=== PATIENT | female | born 1945 | race Two or more races ===

== ENCOUNTER 2017-11-11 12:00 | Outpatient (CLI) | payer OTHER | END 2017-11-11 17:00 | disposition home or self-care (01) | LOC: SONOGRAMA 12:00 | DX: N18.3 Chronic kidney disease, stage 3 (moderate) (principal) ==

== ENCOUNTER 2017-12-24 12:13 | Outpatient (CLI) | payer OTHER | END 2017-12-24 15:59 | disposition home or self-care (01) | LOC: RAD 12:13 | DX: M51.36 Other intervertebral disc degeneration, lumbar region (principal) ==

== ENCOUNTER 2018-11-27 12:50 | Outpatient (CLI) | payer OTHER | END 2018-11-27 15:28 | disposition home or self-care (01) | LOC: SONOGRAMA 12:50 | DX: R10.2 Pelvic and perineal pain (principal); R10.9 Unspecified abdominal pain ==

== ENCOUNTER → 2018-11-27 | Emergency (ER) | payer OTHER ==
[~2018-11-27] VITALS: Ht 165.1 cm; Wt 89.8 kg
== END | disposition left against medical advice (07) ==
LOC: ER 10:47
DX: Z53.20 Procedure and treatment not carried out because of patient's decision for unspecified reasons (principal)

== ENCOUNTER 2018-12-31 10:03 | Outpatient (CLI) | payer OTHER | END 2018-12-31 11:00 | disposition home or self-care (01) | LOC: NUCLEAR 10:03 | DX: C50.111 Malignant neoplasm of central portion of right female breast (principal) | CPT/HCPCS: 78815; A9552 ==

== ENCOUNTER → 2019-01-05 | Outpatient (CLI) | payer OTHER | END | disposition home or self-care (01) | LOC: NUCLEAR 13:00 | DX: C50.111 Malignant neoplasm of central portion of right female breast (principal) | CPT/HCPCS: 78472; 78496; A9500 ==

== ENCOUNTER 2019-02-03 10:01 | Outpatient (CLI) | payer OTHER | END 2019-02-03 10:03 | disposition home or self-care (01) | LOC: SONOGRAMA 10:01 | DX: E04.1 Nontoxic single thyroid nodule (principal) ==

== ENCOUNTER 2019-02-12 14:00 | Outpatient (CLI) | payer OTHER | END 2019-02-12 14:12 | disposition home or self-care (01) | LOC: RAD 14:00 | DX: M25.511 Pain in right shoulder (principal) ==

== ENCOUNTER → 2019-03-11 | Outpatient (CLI) | payer OTHER | END | disposition home or self-care (01) | LOC: RAD 14:45 | DX: Z01.818 Encounter for other preprocedural examination (principal) ==

== ENCOUNTER 2021-10-30 10:10 | Outpatient (CLI) | payer OTHER | END 2021-10-30 10:11 | disposition home or self-care (01) | LOC: NUCLEAR 10:10 | PROVIDERS: ATTEND General Practice | DX: M85.89 Other specified disorders of bone density and structure, multiple sites (principal); I73.9 Peripheral vascular disease, unspecified ==

== ENCOUNTER 2021-11-01 10:16 | Outpatient (CLI) | payer OTHER | END 2021-11-01 10:17 | disposition home or self-care (01) | LOC: NUCLEAR 10:16 | PROVIDERS: ATTEND General Practice | DX: I73.9 Peripheral vascular disease, unspecified (principal) ==

== ENCOUNTER 2021-11-06 10:15 | Outpatient (CLI) | payer OTHER | END 2021-11-06 10:21 | disposition home or self-care (01) | LOC: RAD 10:15 | PROVIDERS: ATTEND General Practice | DX: N60.11 Diffuse cystic mastopathy of right breast (principal); N60.12 Diffuse cystic mastopathy of left breast; I10 Essential (primary) hypertension ==

== ENCOUNTER 2023-04-19 14:03 | Outpatient (CLI) | payer OTHER | END 2023-04-19 14:10 | disposition home or self-care (01) | LOC: RAD 14:03 | PROVIDERS: ATTEND Orthopaedic Surgery | DX: S60.221A Contusion of right hand, initial encounter (principal) ==

== ENCOUNTER 2023-11-11 12:10 | Outpatient (CLI) | payer OTHER | END 2023-11-11 12:18 | disposition home or self-care (01) | LOC: RAD 12:10 | PROVIDERS: ATTEND Internal Medicine Pulmonary Disease | DX: G30.9 Alzheimer's disease, unspecified (principal); R05.3 Chronic cough; C50.911 Malignant neoplasm of unspecified site of right female breast | CPT/HCPCS: 70551 ==

== ENCOUNTER 2024-02-05 09:11 | Outpatient (CLI) | payer OTHER | END 2024-02-05 09:12 | disposition home or self-care (01) | LOC: NUCLEAR 09:11 | PROVIDERS: ATTEND General Practice | DX: M85.89 Other specified disorders of bone density and structure, multiple sites (principal); M81.0 Age-related osteoporosis without current pathological fracture ==

== ENCOUNTER 2024-03-16 13:06 | Outpatient (CLI) | payer OTHER | END 2024-03-16 13:13 | disposition home or self-care (01) | LOC: SONOGRAMA 13:06 | PROVIDERS: ATTEND General Practice | DX: N18.2 Chronic kidney disease, stage 2 (mild) (principal); E11.22 Type 2 diabetes mellitus with diabetic chronic kidney disease; R10.32 Left lower quadrant pain ==

== ENCOUNTER 2024-07-10 11:20 | Outpatient (CLI) | payer OTHER | END 2024-07-10 11:24 | disposition home or self-care (01) | LOC: RAD 11:20 | PROVIDERS: ATTEND Ophthalmology | DX: I15.8 Other secondary hypertension (principal); I10 Essential (primary) hypertension ==

== ENCOUNTER 2024-07-11 09:23 | Outpatient (CLI) | payer OTHER ==
[2024-07-11 11:25] LABS: HEMATOCRIT 40.2 % (36.0-45.00); HEMOGLOBIN 13.8 g/dL (12.0-15.00); MEAN CELL VOLUME 83.8 fL (80.00-100.00); MEAN CORPUSCULAR HEMOGLOBIN 28.8 pg (27.00-32.0); MEAN CORPUSCULAR HGB CONC 34.4 g/dl (32.0-36.0); PLATELET COUNT 385 K/uL (150-450)
[2024-07-11 11:30] LABS: INR < 0.93; PARTIAL THROMBOPLASTIN TIME 21.5 SECONDS (22.0-34.0); PROTHROMBIN TIME 10.2 SECONDS (9.0-11.5)
[2024-07-11 11:45] LABS: BILIRUBIN TOTAL 0.56 mg/dL (0.3-1.2); CALCIUM 10.3 mg/dL (8.5-10.1); CREATININE SERUM 1.4 mg/dL (0.55-1.02); GFR 36.46; GLOBULINA 3.4 G/DL (2.4-3.5); PHOSPHOROUS 3.1 mg/dL (2.5-4.9); POTASSIUM 3.2 mEq/L (3.5-5.1); T4 FREE 1.38 NG/ML (0.76-1.46); TOTAL PROTEIN 7.4 gm/dL (6.4-8.2); TSH 0.354 uIU/mL (0.358-3.74)
[2024-07-11 12:19] LABS: URINE APPEARANCE Cloudy; URINE BILIRRUBIN Negative (NEGATIVE); URINE BLOOD Negative; URINE COLOR Dark Yellow; URINE KETONE Trace (NEGATIVE); URINE LEUKOCYTE Small; URINE NITRATE Negative; URINE PROTEIN Trace (NEGATIVE)
[2024-07-11 12:24] LABS: URINE BACTERIA 2207.9 uL (0.0-1933); URINE EPITHELIAL CELLS 123.4 uL (0.0-38.8); URINE RBC 77.7 uL (0.0-20.8); URINE WBC 203.1 uL (0.0-23.2)
[2024-07-11 13:23] LABS: URINE CAST 1.32 uL (0.0-1.40); URINE GLUCOSE >=1000 MG/DL (NEGATIVE); URINE YEAST FEW /hpf
== END 2024-07-11 09:30 | disposition home or self-care (01) ==
LOC: LAB 09:23
PROVIDERS: ATTEND Ophthalmology
DX: E11.65 Type 2 diabetes mellitus with hyperglycemia (principal); E03.9 Hypothyroidism, unspecified; D64.9 Anemia, unspecified; E78.5 Hyperlipidemia, unspecified; E11.39 Type 2 diabetes mellitus with other diabetic ophthalmic complication; I15.8 Other secondary hypertension; D68.32 Hemorrhagic disorder due to extrinsic circulating anticoagulants; D69.9 Hemorrhagic condition, unspecified; N18.2 Chronic kidney disease, stage 2 (mild); E11.22 Type 2 diabetes mellitus with diabetic chronic kidney disease; E78.2 Mixed hyperlipidemia

== ENCOUNTER → 2024-07-21 10:37 | Outpatient (CLI) | payer OTHER ==
[2024-07-21 11:15] LABS: HEMATOCRIT 43.3 % (36.0-45.00); HEMOGLOBIN 14.8 g/dL (12.0-15.00); MEAN CELL VOLUME 84.1 fL (80.00-100.00); MEAN CORPUSCULAR HEMOGLOBIN 28.8 pg (27.00-32.0); MEAN CORPUSCULAR HGB CONC 34.2 g/dl (32.0-36.0); PLATELET COUNT 329 K/uL (150-450); RED BLOOD COUNT 5.15 M/uL (4.00-6.00); RED CELL DISTRIBUTION WIDTH 15.9 % (11.5-14.5)
[2024-07-21 12:28] LABS: CALCIUM 9.8 mg/dL (8.5-10.1); CREATININE SERUM 1.22 mg/dL (0.55-1.02); GFR 42.74; POTASSIUM 4.54 mEq/L (3.5-5.1)
== END | disposition home or self-care (01) ==
LOC: LAB 10:37
PROVIDERS: ATTEND General Practice
DX: E11.65 Type 2 diabetes mellitus with hyperglycemia (principal); D64.9 Anemia, unspecified

== ENCOUNTER 2025-03-06 10:54 | Outpatient (CLI) | payer OTHER ==
[2025-03-06 12:03] LABS: URINE APPEARANCE Cloudy; URINE BILIRRUBIN Negative (NEGATIVE); URINE BLOOD Negative; URINE COLOR Dark Yellow; URINE GLUCOSE Negative (NEGATIVE); URINE KETONE Trace (NEGATIVE); URINE LEUKOCYTE Moderate; URINE NITRATE Positive; URINE PROTEIN Trace (NEGATIVE); URINE UROBILINOGEN 0.2 E.U./dl
[2025-03-06 12:04] LABS: URINE EPITHELIAL CELLS 83.6 uL (0.0-38.8); URINE RBC 14.6 uL (0.0-20.8); URINE WBC 825.9 uL (0.0-23.2)
[2025-03-06 12:28] LABS: URINE BACTERIA > 9821.5 uL (0.0-1933)
[2025-03-06 12:29] LABS: URINE CAST 0.43 uL (0.0-1.40); URINE YEAST NEGATIVE /hpf
== END 2025-03-06 11:01 | disposition home or self-care (01) ==
LOC: LAB 10:54
PROVIDERS: ATTEND Obstetrics & Gynecology
DX: D64.9 Anemia, unspecified (principal); N39.0 Urinary tract infection, site not specified; R79.1 Abnormal coagulation profile; R79.89 Other specified abnormal findings of blood chemistry; R05.9 Cough, unspecified; R05.1 Acute cough